=== PATIENT | male | born 1980 | race Caucasian/White ===

== ENCOUNTER 2021-02-24 14:14 | Outpatient (RCR) | payer MEDICAID, SELFPAY | END 2021-04-15 23:59 | LOC: IMMUN 14:14 | PROVIDERS: PCP Family Medicine; Visit Provider Family Medicine | DX: Z23 Encounter for immunization (principal) | CPT/HCPCS: 0001A; 91300 ==

== ENCOUNTER 2025-05-14 12:02 | Inpatient (IN) | payer MEDICAID, SELFPAY ==
[2025-05-14] VITALS (13 sets, daily range): BP systolic 128–158; BP diastolic 90–115; PULSE 61–105; RESP 13–16; TEMP 36.4–37.1; O2SAT 97–100; BMI 19.8; BMI 18.8
--- NOTE | 2025-05-14 12:20 | EKG12_ITS ---
Test Reason : PLACEMENT Blood Pressure : */* mmHG Vent. Rate : 95 BPM Atrial Rate : 95 BPM P-R Int : 150 ms QRS Dur : 78 ms QT Int : 360 ms P-R-T Axes : 51 77 27 degrees QTcB Int : 452 ms Normal sinus rhythm Minimal voltage criteria for LVH, may be normal variant ( Sokolow-Briscoe ) Nonspecific ST abnormality Abnormal ECG Confirmed by ANDRADE RODRÍGUEZ, KELLY ([id number]), purchasing expeditor JUAN RAMON SOTO ([id number]) on 05/18/2025 6:35:19 AM Referred By: Confirmed By: KELLY ZAFAR MD
--- NOTE | 2025-05-14 12:30 | EDS_ITS ---
HPI HPI - Psych History of Present Illness Chief Complaint: Overdose Informant: patient, EMS and police/docent coordinator Narrative Narrative: 44-year-old male attempted to commit suicide. According to pink slip from
--- NOTE | 2025-05-14 12:30 | EX.ED.VIS.PS ---
HPI HPI - Psych History of Present Illness Chief Complaint: Overdose Informant: patient, EMS and police/general intern Narrative Narrative: 44-year-old male attempted to commit suicide. According to pink slip from police, third-green party requested aware welfare check on him, and the patient admitted to consuming 47 pills of Tylenol PM sleeping pills as well as half of a bottle of vodka. The patient admits that this was around 1 or 2 AM, he presents here around noon. He states he had some nausea and dry heaving he did not vomit up any of the pills. It was a full bottle of 50 pills and he had taken 3 of the pills at an earlier date, 1 at a time separately. He states he believes they were 500 mg acetaminophen pills along with diphenhydramine. He took no other coingestants. He states he lost a job, has financial issues, he has been evicted from his housing, and told police that he would try to kill himself again and wants to . States he feels a little nauseated right now but has no other symptoms and declines any medication for that. [facility] Medical History (Updated 05/14/25 @ 15:22 by Musa Chris) Fibromyalgia Medical History no medical history no medical history Home Medications ?Medication ?Instructions ?Recorded ?Last Taken ?Type NK 05/14/25 Unknown History Allergy/AdvReac Type Severity Reaction Status Date / Time Penicillins Allergy Unknown unknown Verified 05/14/25 13:32 Social History Smoking Status: Current every day smoker tobacco type: cigarettes ROS ROS ED Constitutional Constitutional ED: Denies chills or fever(s) Eyes Eyes: Denies change in vision or diplopia ENT ENT ED: Denies rhinorrhea or sore throat Cardiovascular Cardiovascular: Denies chest pain or palpitations Respiratory/Chest Respiratory/Chest: Denies cough or dyspnea Gastrointestinal Gastrointestinal: Reports nausea and vomiting; Denies abdominal pain or diarrhea Genitourinary Genitourinary ED: Denies dysuria or hematuria Musculoskeletal Musculoskeletal: Denies back pain or neck pain Integumentary Denies abscess or rash Neurologic Neurologic: Denies headache(s), paresthesias or weakness Psychiatric Psychiatric: Reports depression, suicidal ideation and suicidal thoughts; Denies homicidal ideation EXAM Physical Exam Const Vital Signs: 05/14/25 12:03 05/14/25 13:03 05/14/25 14:00 Temperature 98.1 F Temperature Source Oral Pulse Rate 105 H 84 81 Respiratory Rate 15 13 15 Blood Pressure 158/104 H 149/107 H 144/100 H Blood Pressure Mean 122 121 114 Pulse Ox 100 100 100 Oxygen Delivery Method Room Air Room Air Room Air Positive well nourished and well developed General Appearance ED: well developed and NAD HEENT Reports moist mucous membranes normocephalic and atraumatic Eyes PERRL and EOMs intact bilaterally General Eye ED: Negative for scleral icterus Neck no lymphadenopathy and supple Resp normal respiratory effort and clear to auscultation bilaterally Cardio no murmurs Rate: regular rate Rhythm: regular rhythm GI non-distended GI Narrative: Mild right upper quadrant/epigastric tenderness no guarding or rebound otherwise benign abdomen. Auscultation: normoactive bowel sounds Palpation: soft Back/Spine no CVA tenderness and normal ROM Extremity normal to inspection General Extremety ED: Negative for edema General Extremity: Negative for edema Neuro oriented x3, CN's II-XII intact bilaterally, no sensory deficits noted and gait normal Sensorium / Orientation: alert Motor Exam: strength 5/5 throughout Psych mental status grossly normal, thought process normal, cooperative, activity/motor behavior normal and denies homicidal ideation Mood & Affect: depressed and flat affect Thought Content: suicidality, No homicidality, No delusion(s) and No hallucination(s) Skin General Skin Exam: Negative for jaundice Lesions: no lesions Rashes: no rashes MDM MDM MDM Narrative Medical decision making narrative: Toxicology and liver enzymes/labs are pending, patient has been cooperative, in the meantime I am ordering him a dose of Acetadote 150 mg/kg over 60 minutes given my high suspicion for a toxic or near toxic overdose and tenderness in her right upper quadrant. Patient's acetaminophen level went placed in the Rumack Addy nomogram is above the both the treatment and Rumack Addy lines, placing him fully in the probable acetaminophen toxic portion of the nomogram, and admission to the ICU for further acetylcysteine treatment and monitoring is indicated. At this time his alcohol level is negative, his salicylate level is negative, his INR and liver enzymes are normal, and he does not have an anticholinergic toxidrome from the diphenhydramine component at this time. Discussed with hospitalist for ICU admission. Lab Data Attestation: I reviewed the patient's lab results. Labs: Laboratory Results - last 24 hr 05/14/25 05/14/25 12:20 13:27 WBC 6.6 RBC 5.00 Hgb 15.0 Hct 43.9 MCV 87.8 MCH 30.0 MCHC 34.2 RDW Std Deviation 40.7 RDW Coeff of Dominique 12.7 Plt Count 216 MPV 11.1 Immature Gran % (Auto) 0.600 Neut % (Auto) 84.8 H Lymph % (Auto) 9.0 L Lyon % (Auto) 5.1 Eos % (Auto) 0.0 Baso % (Auto) 0.5 Absolute Neuts (auto) 5.6 Absolute Lymphs (auto) 0.60 L Nucleated RBC % 0 PT 14.8 INR 1.1 Sodium 138 Potassium 4.5 Chloride 104 Carbon Dioxide 21.7 Anion Gap 12 BUN 13 Creatinine 0.93 Estim Creat Clear Calc 90.54 Est GFR (MDRD) Non-Af 104 BUN/Creatinine Ratio 13.4 Glucose 116 H Calcium 9.2 Total Bilirubin 0.39 Direct Bilirubin 0.18 AST 32 ALT 36 Alkaline Phosphatase 67 Total Protein 6.8 Albumin 4.6 Globulin 2.3 Salicylates < 0.5 L Acetaminophen 66.8 H* Ethyl Alcohol < 10.1 Rhythm Strip Rhythm Strip: Sinus Rhythm Rate: 95 Ectopy: None EKG Initial EKG: Attestation: I personally reviewed and interpreted this EKG as follows: Interpretation: Sinus Rhythm and No Acute Injury Pattern Comments: Nml axis & intervals; nml EKG. QTc within normal limits. Management Discussion w/another healthcare provider: Hospitalist and Logistics Research Engineer (Dr. harrington, [facility]) Critical Care Time Critical Care Time: Yes Critical care time (excluding procedures): 30-74 minutes (43 min), Including time spent:, Discussing w/Patient &/or Family/Risk Manager, Discussing w/Consultants, Arranging Admission or Transfer and Performing Direct Patient Care at Bedside Discharge Plan Dx/Rx/DC Orders Clinical Impression: Acetaminophen toxicity, Suicide attempt by acetaminophen overdose Disposition Disposition: [facility] Discharge Date/Time: 05/14/25 14:49
[2025-05-14 12:33] LABS: Hematocrit 43.9 % (40-54); Hemoglobin 15.0 g/dL (13.0-16.5); Immature Granulocytes Count 0.040 X10^3/uL (0.0-0.0); Mean Corp Hgb Conc 34.2 g/dL (32-36); Mean Corpuscular Volume 87.8 fL (80-94); Mean Platelet Vol. 11.1 fl (6.2-12.0); NRBC Flagged by Analyzer 0 % (0-5); POSITIVE DIFFERENTIAL YES; Platelet Count 216 K/mm3 (150-450); RBC Distribution Width CV 12.7 % (11.6-14.6); RBC Distribution Width SD 40.7 fl (35.1-43.9); Red Blood Count 5.00 M/mm3 (4.6-6.2); White Blood Count 6.6 K/mm3 (4.4-11.0)
[2025-05-14 13:03] LABS: Anion Gap 12 (5-15); BUN 13 mg/dL (4-19); BUN/Creat Ratio 13.4 RATIO (10-20); Calcium,Total 9.2 mg/dL (7.6-11.0); Carbon Dioxide 21.7 mmol/L (21.0-32.0); Chloride 104 mmol/L (98-108); Estimated Creatinine Clearance 90.54 ml/min (50-250); Glucose 116 mg/dL (70-99); Potassium 4.5 mmol/L (3.3-5.1)
[2025-05-14] MEDS: WATER IV ×3 (13:30→18:37)
[2025-05-14] MEDS: ACETYLCYSTEINE IV ×3 (13:30→18:37)
[2025-05-14] MEDS: DEXTROSE 5% IV ×3 (13:30→18:37)
[2025-05-14 13:40] LABS: Acetaminophen (Tylenol) Level 66.8 ug/mL (8.0-19.0); Alcohol, Blood (Medical)-Serum < 10.1 mg/dL (<=10.0); Salicylate < 0.5 mg/dL (2.8-20.0)
[2025-05-14 13:42] LABS: Prothrombin Time (Protime)PT. 14.8 SECONDS (11.7-14.9)
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
--- NOTE | 2025-05-14 14:04 | HP.PCM.HOS_ITS ---
HPI - General General Date of Admission: 05/14/25 Date of Service: 05/14/25 Chief Complaint: Intentional Tylenol overdose HPI Narrative GUILLERMINA CATES, is a 44 M who presented to [facility] ED on 05/14/2025 after an intentional Tylenol overdose. Patient lives at home alone. [employer] requested a welfare check on him, and be admitted to consuming 47 pills of Tylenol p.m. sleeping pills as well as half a bottle of vodka in an attempt to commit suicide. Notes he took these things around 1 to 2 AM, and police arrived there around noon. He reported some nausea and dry heaving but did not vomit up any pills. States that he recently lost the job, has financial issues, and has been evicted from his housing. Told police that he would try to kill him self again and wants to . Has no other significant medical history. In the ED he was mildly hypertensive but otherwise stable on room air at rest. CBC and BMP were benign. Tylenol level very elevated at 66.8. Alcohol level normal and salicylate level normal. LFTs were normal and INR 1.1. He was given the first dose of IV N-acetylcysteine and hospitalist was contacted for admission. I saw the patient at bedside in the ED. Patient was sitting back in bed and resting comfortably. He responded to me with a few short responses but it appeared he selectively was not answering most of my questions. He denied any abdominal pain currently. Will be admitted for further management. [facility] Medical History no medical history Home Medications ?Medication ?Instructions ?Recorded ?Last Taken ?Type NK 05/14/25 Unknown History Allergy/AdvReac Type Severity Reaction Status Date / Time Penicillins Allergy Unknown unknown Verified 05/14/25 13:32 Social History Smoking Status: Current every day smoker tobacco type: cigarettes ROS Constitutional Constitutional: Denies chills or fever(s) Cardiovascular Cardiovascular: Denies chest pain Respiratory/Chest Respiratory/Chest: Denies shortness of breath at rest Gastrointestinal Gastrointestinal: Denies abdominal pain Vital Signs Vital Signs Vital Signs: 05/14/25 12:03 05/14/25 13:03 Temperature 98.1 F Temperature Source Oral Pulse Rate 105 H 84 Respiratory Rate 15 13 Blood Pressure 158/104 H 149/107 H Blood Pressure Mean 122 121 Pulse Ox 100 100 Oxygen Delivery Method Room Air Room Air Weight Weight: 62.5 kg Body Mass Index (BMI) 19.8 Physical Exam Const alert, no apparent distress and average body habitus Constitutional Narrative: Middle-age male, sitting back comfortably in bed, only selectively responsive to my questions but otherwise appeared to be in no acute distress. General Appearance: cooperative and comfortable HEENT normocephalic, head/scalp atraumatic, hearing grossly normal bilaterally, nasal mucous membranes and turbinates normal and moist oral mucous membranes Eyes PERRL, EOMs intact bilaterally and conjunctivae normal Neck full ROM Chest inspection of chest normal Resp normal respiratory effort, normal air movement, no use of accessory muscles and clear to auscultation bilaterally Cardio regular rate, regular rhythm, no murmurs and peripheral pulses 2+ throughout GI normal to inspection, nondistended, normoactive bowel sounds, soft to palpation, non-tender and non-distended Back/Spine normal ROM Extremity normal to inspection, full ROM and no pedal edema Skin no rashes or lesions noted Psych mental status grossly normal Mood & Affect: depressed Results Lab / Micro Data 05/14/25 12:20 05/14/25 12:20 Labs: Laboratory Results - last 24 hr 05/14/25 12:20: WBC 6.6, RBC 5.00, Hgb 15.0, Hct 43.9, MCV 87.8, MCH 30.0, MCHC 34.2, RDW Std Deviation 40.7, RDW Coeff of Dominique 12.7, Plt Count 216, MPV 11.1, Immature Gran % (Auto) 0.600, Neut % (Auto) 84.8 H, Lymph % (Auto) 9.0 L, Adams % (Auto) 5.1, Eos % (Auto) 0.0, Baso % (Auto) 0.5, Absolute Neuts (auto) 5.6, A bsolute Lymphs (auto) 0.60 L, Nucleated RBC % 0, Sodium 138, Potassium 4.5, Chloride 104, Carbon Dioxide 21.7, Anion Gap 12, BUN 13, Creatinine 0.93, Estim Creat Clear Calc 90.54, Est GFR (MDRD) Non-Af 104, BUN/Creatinine Ratio 13.4, G lucose 116 H, Calcium 9.2, Salicylates < 0.5 L, Acetaminophen 66.8 H*, Ethyl Alcohol < 10.1 05/14/25 13:27: PT 14.8, INR 1.1 Rhythm Strip Rhythm Strip: Sinus Rhythm Rate: 95 Ectopy: None Assessment & Plan Assessment/Plan (1) Suicide attempt by acetaminophen overdose: (2) Acetaminophen toxicity: PLAN: Plan Patient is a 44-year-old male who presented to [facility] ED on 05/14/2025 with intentional Tylenol overdose. 1. Intentional Tylenol overdose ? Admit under inpatient status to ICU. Reported taking 47 pills of Tylenol PM intentionally in an attempt to commit suicide. Several recent life stressors including losing his job, financial issues and being evicted from his house. Tylenol level very elevated at 66.8, but labs otherwise normal with INR 1.1 and normal LFTs. Mildly hypertensive in the ED but otherwise stable on room air at rest and in no acute pain. Discussed with pharmacy and will treat with 3 bag IV N-acetylcysteine method that takes 21 hours to complete. Given first bag in the ICU over 1 hour; second bag will be run over 4 hours and then third bag will run for 16 hours. Will recheck LFTs, INR and N-acetylcysteine level tomorrow morning. [place] slip in place and patient will require inpatient psychiatric hospitalization once medically stable. DVT prophylaxis: Lovenox CODE STATUS: Full code, unverified Expected disposition: TBD Total clinical time spent by myself addressing the patient's medical issues, reviewing all the data, and collaborating with patient's care team: 55 minutes. Charges/Coding Visit Charges Inpatient E&M: 10146 Init Hosp L2
[2025-05-14 14:30] LABS: AST(SGOT) 32 U/L (<=37); Alanine Aminotransfer ALT/SGPT 36 U/L (<=46); Albumin, Serum 4.6 g/dL (3.5-5.0); Alkaline Phosphatase 67 U/L (40-129); Bilirubin, Direct 0.18 mg/dL (0.00-0.30); Globulin 2.3 g/dL (2.2-4.2)
[2025-05-14 18:12] LABS: Barbiturate Urine NEGATIVE (< 200 ng/mL); Benzodiazepine Urine NEGATIVE (< 200 ng/mL); PCP Urine NEGATIVE (< 25 ng/mL); THC Urine NEGATIVE (< 50 ng/mL)
--- OUTSIDE RECORDS SUMMARY | 2025-05-14 20:47 | XMS RPT_ITS | CCD ---
Author Organization [facility] Care Team Providers Care Business Intelligence Administrator Name Role Phone SALVADOR PHILLIPS MD Primary Care Physician Howie RODRÍGUEZ, Dr. Franco Primary Care Provider [phone] Dr. Jem Krause MD Emergency Provider Dr. Pako Martinez DO Admit Provider Dr. Pako Martinez DO Attending Provider Allergies Allergy Classification Reported Allergen(s) Allergy Type Date of Onset Reaction(s) Facility (2 sources) Penicillin; Translations: [penicillin] Drug Allergy [facility] (1 source) Penicillins Allergy to substance 05-14-2025 unknown [facility] Medications Current Medications Medication Drug Class(es) Dates Sig (Normalized) Sig (Original) aspirin 81 mg delayed release oral tablet (2 sources) Platelet Aggregation Inhibitor, Nonsteroidal Anti-inflammatory Drug Start: 04-17-2019 aspirin 81 mg oral delayed release tablet Dose : 81 mg = 1 tab(s), Oral, qDay, # 30 tab(s), 0 Refill(s) Start Date: 04/17/19 Status: Ordered Start: 04-17-2019 aspirin 81 mg oral delayed release tablet Dose : 81 mg = 1 tab(s), Oral, qDay, # 30 tab(s), 0 Refill(s) Start Date: 04/17/19 Status: Ordered celecoxib 200 mg oral capsule (2 sources) Nonsteroidal Anti-inflammatory Drug Start: 09-13-2020 celecoxib 200 mg oral capsule Dose : 200 mg = 1 cap(s), Oral, qDay, PRN as needed for pain, # 10 cap(s), 0 Refill(s) Start Date: 09/13/20 Status: Ordered clindamycin 150 mg oral capsule (1 source) Lincosamide Antibacterial Start: 04-16-2022 End: 04-23-2022 clindamycin 150 mg oral capsule Dose : 450 mg = 3 cap(s), Oral, TID, X 7 day(s), # 63 cap(s), 0 Refill(s), 04/23/22 7:40:00 EDT, Pain in tooth, 68.2 Start Date: 04/16/22 Stop Date: 04/23/22 Status: Ordered Magnesium (1 source) Start: 12-01-2019 take 1 mg by mouth once daily Magnesium 250 mg tablet mg = tab(s), Oral, qDay, 0 Refill(s) Start Date: 12/01/19 Status: Ordered magnesium oxide 250 mg oral tablet (1 source) Start: 12-01-2019 take 1 mg by mouth once daily Magnesium 250 mg tablet mg = tab(s), Oral, qDay, 0 Refill(s) Start Date: 12/01/19 Status: Ordered Multivitamin preparation (2 sources) Start: 09-03-2018 take 1 tablet by mouth once daily Multivitamin Dose = 1 tab(s), Oral, Daily, 0 Refill(s) Start Date: 09/03/18 Status: Ordered Probiotic (2 sources) Start: 12-01-2019 Probiotic 0 Refill(s) Start Date: 12/01/19 Status: Ordered turmeric extract 500 mg oral capsule (2 sources) Start: 07-22-2019 turmeric 500 mg oral capsule 0 Refill(s) Start Date: 07/22/19 Status: Ordered Completed/Discontinued Medications Medication Drug Class(es) Dates Sig (Normalized) Sig (Original) clonazePAM 0.5 mg oral tablet (2 sources) Benzodiazepine Start: 12-01-2019 End: 01-30-2020 clonazePAM 0.5 mg oral tablet Dose : 1 mg = 2 tab(s), Oral, qHS, # 60 tab(s), 1 Refill(s), Pharmacy: [facility], Insomnia, 175, cm, 12/01/19 15:45:00 EDT, Height, 73, kg, 12/01/19 15:45:00 EDT, Dosing Weight Start Date: 12/01/19 Stop Date: 01/30/20 Status: Ordered diclofenac sodium 0.01 mg/mg topical gel (2 sources) Nonsteroidal Anti-inflammatory Drug Start: 01-05-2020 End: 04-04-2020 Voltaren 1% topical gel 2 = gram(s), Topical, QID, PRN as needed for pain, # 100 gram(s), 2 Refill(s), Pharmacy: [id number], Gel, 175, cm, 01/05/20 15:19:00 EDT, Height, 74, kg, 01/05/20 15:19:00 EDT, Dosing Weight Start Date: 01/05/20 Stop Date: 04/04/20 Status: Ordered Start: 01-05-2020 End: 04-04-2020 Voltaren 1% topical gel 2 = gram(s), Topical, QID, PRN as needed for pain, # 100 gram(s), 2 Refill(s), Pharmacy: [id number], Gel, 175, cm, 01/05/20 15:19:00 EDT, Height, 74, kg, 01/05/20 15:19:00 EDT, Dosing Weight Start Date: 01/05/20 Stop Date: 04/04/20 Status: Ordered Problems Problem Classification Problem Date Documented Da te Episodic/Chronic Cardiac dysrhythmias (2 sources) Palpitations 12-01-2019 Episodic Disorders of teeth and jaw (1 source) Disorder of teeth AND/OR supporting structures; Translations: [Other specified disorders of teeth and supporting structures] Onset: 04-16-2022 Episodic Other connective tissue disease (2 sources) Bursitis of knee 09-03-2018 Episodic Other nervous system disorders (2 sources) Carpal tunnel syndrome 09-03-2018 Chronic Other nervous system disorders (2 sources) Impaired cognition 12-01-2019 Episodic Other nervous system disorders (2 sources) Facial paresthesia 04-17-2019 Episodic Poisoning by other medications and drugs (1 source) Poisoning caused by acetaminophen; Translations: [Poisoning by 4-Aminophenol derivatives, accidental (unintentional), initial encounter] 05-14-2025 Episodic Residual codes; unclassified (2 sources) Feeling agitated 04-17-2019 Chronic Spondylosis; intervertebral disc disorders; other back problems (2 sources) Thoracic back pain 09-13-2020 Episodic Suicide and intentional self-inflicted injury (1 source) Intentional paracetamol overdose; Translations: [Poisoning by 4-Aminophenol derivatives, intentional self-harm, initial encounter] 05-14-2025 Episodic Transient cerebral ischemia (2 sources) Transient cerebral ischemia 04-17-2019 Chronic Results Test Name Value Interpretation Reference Range Facility Absolute lymphocyte countOrd ered By: Jem Krause on 05-14-2025 Lymphocytes Auto (Unsp spec) [#/Vol] 0.60 10*3/uL Low 0.83-4.51 [facility] Absolute neutrophil countOrd ered By: Jem Krause on 05-14-2025 Neutrophils (Bld) [#/Vol] 5.6 10*3/uL 2.0-7.7 [facility] Anion gap in Serum or Plasma Ordered By: Jem Krause on 05-14-2025 Anion gap [Moles/Vol] 12 mmol/L 5-15 [facility] Automated lymphocyte count a s percentage of total leukocytesOrdered By: Jem Krause on 05-14-2025 Lymphocytes/100 WBC Auto (Unsp spec) 9.0 % Low 19-41 [facility] BUN/creatinine ratioOrdered By: Jem Krause on 05-14-2025 Urea nitrogen/Creatinine [Mass ratio] 13.4 mg/mg 10-20 [facility] Basophil percentageOrdered B y: Jem Krause on 05-14-2025 Basophils/100 WBC (Bld) 0.5 % 0-1 [facility] Bilirubin directOrdered By: Jem Krause on 05-14-2025 Bilirubin.direct [Mass/Vol] 0.18 mg/dL 0.00-0.30 [facility] Bilirubin, totalOrdered By: Jem Krause on 05-14-2025 Bilirubin [Mass/Vol] 0.39 mg/dL 0.00-1.30 [facility] Carbon dioxide, total [Moles /volume] in Central venous bloodOrdered By: Jem Krause on 05-14-2025 CO2 [Moles/Vol] 21.7 mmol/L 21.0-32.0 [facility] Chloride assayOrdered By: Trey Krause on 05-14-2025 Chloride [Moles/Vol] 104 mmol/L 98-108 [facility] Eosinophil percentageOrdered By: Jem Krause on 05-14-2025 Eosinophils/100 WBC (Bld) 0.0 % 0-5 [facility] Erythrocyte distribution wid th ratioOrdered By: Jem Krause on 05-14-2025 Erythrocyte distribution width (RBC) [Ratio] 12.7 % 11.6-14.6 [facility] Erythrocyte distribution wid th standard deviationOrdered By: Jem Krause on 05-14-2025 Erythrocyte distribution width (RBC) [Ratio] 40.7 fl 35.1-43.9 [facility] Glomerular filtration rate ( GFR) estimation/1.73 sq m using serum, plasma, or whole bOrdered By: Jem Krause on 05-14-2025 GFR/1.73 sq M.predicted among non-blacks MDRD (S/P/Bld) [Vol rate/Area] 104 mL/min/{1.73_m2} >60 [facility] Comment on above: mL/min/1.73m2 CKD-EP I Creatinine Equation (2020) Hematocrit Auto (Bld) [Volum e fraction]Ordered By: Jem Krause on 05-14-2025 Hematocrit (Bld) [Volume fraction] 43.9 % 40-54 [facility] Hemoglobin measurementOrdere d By: Jem Krause on 05-14-2025 Hemoglobin (Bld) [Mass/Vol] 15.0 g/dL 13.0-16.5 [facility] Immature granulocytes/100 WB C Auto (Bld)Ordered By: Jem Krause on 05-14-2025 Immature granulocytes/100 WBC (Bld) 0.600 % 0.0-0.9 [facility] Comment on above: IG% - Immature Granu locytes (promyelocytes, myelocytes and metamyelocytes) > 1% indicates that a LEFT SHIFT is Present. International normalized rat io (INR) calculationOrdered By: Jem Krause on 05-14-2025 INR Coag (Bld) [Relative time] 1.1 {INR} [facility] Laboratory - Chemistry and C hemistry - challengeOrdered By: Jem Krause on 05-14-2025 AST [Catalytic activity/Vol] 32 U/L <38 [facility] MCV (mean corpuscular volume ) determinationOrdered By: Jem Krause on 05-14-2025 MCV (RBC) [Entitic vol] 87.8 fL 80-94 [facility] Mean corpuscular hemoglobin (MCH) determinationOrdered By: Jem Krause on 05-14-2025 MCH (RBC) [Entitic mass] 30.0 pg 27.0-32.0 [facility] Mean corpuscular hemoglobin concentration (MCHC) determinationOrdered By: Jem Krause on 05-14-2025 MCHC (RBC) [Mass/Vol] 34.2 g/dL 32-36 [facility] Mean platelet volume determi nationOrdered By: Jem Krause on 05-14-2025 Platelet mean volume (Bld) [Entitic vol] 11.1 fL 6.2-12.0 [facility] Monocyte percentageOrdered B y: Jem Krause on 05-14-2025 Monocytes/100 WBC (Bld) 5.1 % 0-10 [facility] Neutrophil percentageOrdered By: Jem Krause on 05-14-2025 Neutrophils/100 WBC (Bld) 84.8 % High 47-70 [facility] Nucleated red blood cell per centageOrdered By: Jem Krause on 05-14-2025 Nucleated RBC/100 WBC (Bld) [Ratio] 0 % 0-5 [facility] Platelet countOrdered By: Trey Krause on 05-14-2025 Platelets (Bld) [#/Vol] 216 10*3/uL 150-450 [facility] Potassium measurement (mass/ volume)Ordered By: Jem Krause on 05-14-2025 Potassium (Unsp spec) [Mass/Vol] 4.5 mmol/L 3.3-5.1 [facility] Prothrombin timeOrdered By: Jem Krause on 05-14-2025 PT Coag (PPP) [Time] 14.8 s 11.7-14.9 [facility] RBC Auto (Bld) [#/Vol]Ordere d By: Jem Krause on 05-14-2025 RBC (Bld) [#/Vol] 5.00 10*6/uL 4.6-6.2 [facility] Serum creatinine measurement (mass/volume)Ordered By: Jem Krause on 05-14-2025 Creatinine [Mass/Vol] 0.93 mg/dL 0.70-1.20 [facility] Serum globulin measurementOr dered By: Jem Krause on 05-14-2025 Globulin (S) [Mass/Vol] 2.3 g/dL 2.2-4.2 [facility] Serum glucose measurement (m ass/volume)Ordered By: Jem Krause on 05-14-2025 Glucose [Mass/Vol] 116 mg/dL High 70-99 [facility] Serum or plasma acetaminophe n measurement (mass/volume)Ordered By: Jem Krause on 05-14-2025 Acetaminophen [Mass/Vol] 66.8 ug/mL High 8.0-19.0 [facility] Comment on above: Critical Result(s) C alled at 1340: by: ALEXUS HENDRICKSON TO [facility]. Results read back by same.Acetaminophen concentrations > 200 ug/mL four hours after ingestion, > 100 ug/mL eight hours after ingestion, and > 50 ug/mL 12 hours after ingestion are potentially toxic.Acetaminophen concentrations greater than 150.0 ug/mL atfour hours after ingestion and 50.0 ug/mL at 12 hours afteringestion are potentially toxic. Serum or plasma alanine chambers otransferase (ALT) measurementOrdered By: Jem Krause on 05-14-2025 ALT [Catalytic activity/Vol] 36 U/L <47 [facility] Serum or plasma albumin gretta urement (mass/volume)Ordered By: Jem Krause on 05-14-2025 Albumin [Mass/Vol] 4.6 g/dL 3.5-5.0 [facility] Serum or plasma alkaline adama sphatase measurementOrdered By: Jem Krause on 05-14-2025 ALP [Catalytic activity/Vol] 67 U/L 40-129 [facility] Serum or plasma calcium gretta urement (mass/volume)Ordered By: Jem Krause on 05-14-2025 Calcium [Mass/Vol] 9.2 mg/dL 7.6-11.0 [facility] Serum or plasma ethanol gretta urement (mass/volume)Ordered By: Jem Krause on 05-14-2025 Ethanol [Mass/Vol] mg/dL <10.1 [facility] Comment on above: This test is for med ical purposes only. The legal definition of intoxication varies according to local law. Serum or plasma salicylates measurement (mass/volume)Ordered By: Jem Krause on 05-14-2025 Salicylates [Mass/Vol] mg/dL Low 2.8-20.0 [facility] Comment on above: Salicylate concentra tions > 30 mg/dL are potentially toxic.Salicylate concentrations exceeding 60 mg/dL can be lethal. Serum or plasma urea nitroge n measurement (mass/volume)Ordered By: Jem Krause on 05-14-2025 Urea nitrogen [Mass/Vol] 13 mg/dL 4-19 [facility] Sodium levelOrdered By: Darin Krause on 05-14-2025 Sodium [Moles/Vol] 138 mmol/L 133-145 [facility] Total proteinOrdered By: Kyle Krause on 05-14-2025 Protein [Mass/Vol] 6.8 g/dL 5.9-8.4 [facility] White blood cell (WBC) count Ordered By: Jem Krause on 05-14-2025 WBC (Bld) [#/Vol] 6.6 10*3/uL 4.4-11.0 [facility] CRPon 08-06-2020 CRP [Mass/Vol] mg/L Normal 0.0-0.9 [facility] ([place]) Comment on above: Performed By: #### E SR, CRP #### [address] [address] ESRon 08-06-2020 Erythrocyte Sed Rate 2 mm/hr Normal 0-15 [facility] ([place]) Comment on above: Performed By: #### E SR, CRP #### [address] [address] Vital Signs Date Time Vital Sign Value Performing Clinician Facility 05-14-2025 14:38-0400 Body temperature 97.6 [degF] Dr. Salvador Phillips MD Work Phone: [facility] 05-14-2025 14:38-0400 Diastolic blood pressure 115 mm[Hg] Dr. Salvador Phillips MD Work Phone: [facility] 05-14-2025 14:38-0400 Heart rate 78 /min Dr. Salvador Phillips MD Work Phone: [facility] 05-14-2025 14:38-0400 Respiratory rate 15 /min Dr. Salvador Phillips MD Work Phone: [facility] 05-14-2025 14:38-0400 SaO2% (BldA) [Mass fraction] 100 % Dr. Salvador Phillips MD Work Phone: [facility] 05-14-2025 14:38-0400 Systolic blood pressure 143 mm[Hg] Dr. Salvador Phillips MD Work Phone: [facility] 05-14-2025 12:03-0400 Body height 177.[address] Salvador Phillips MD Work Phone: [facility] 05-14-2025 12:03-0400 Body mass index (BMI) [Ratio] 19.8 kg/m2 Dr. Salvador Phillips MD Work Phone: [facility] 05-14-2025 12:03-0400 Body weight 62.[address] Salvador Phillips MD Work Phone: [facility] 04-16-2022 07:28-0400 Body temperature 98.78 [degF] JEREMI MOORE DO [facility] 04-16-2022 07:28-0400 Diastolic blood pressure 80 mm[Hg] JEREMI GARCIAJyoti DEMARCO [facility] 04-16-2022 07:28-0400 Heart rate 74 /min JEREMI MOORE DO [facility] 04-16-2022 07:28-0400 Respiratory rate 18 /min JEREMI MOORE DO [facility] 04-16-2022 07:28-0400 Systolic blood pressure 124 mm[Hg] JEREMI RACHELROCIO DEMARCO [facility] 07-12-2021 08:52-0400 Body temperature 98.42 [degF] DR EMORY AYALA DO [facility] 07-12-2021 08:52-0400 Diastolic blood pressure 85 mm[Hg] DR EMORY AYALA DO [facility] 07-12-2021 08:52-0400 Heart rate 53 /min DR EMORY AYALA DO [facility] 07-12-2021 08:52-0400 Mean blood pressure 101 mm[Hg] DR EMORY AYALA DO [facility] 07-12-2021 08:52-0400 Respiratory rate 18 /min DR EMORY AYALA DO [facility] 07-12-2021 08:52-0400 Systolic blood pressure 134 mm[Hg] DR EMORY AYALA DO [facility] Encounters Encounter Date Encounter Type Care Provider Facility Start: 05-14-2025 Evaluation and management of inpatient Dr. Pako Martinez DO -Intensive Care Unit Work Phone: Start: 04-16-2022 End: 04-16-2022 Emergency department patient visit JEREMI MOORE DO [facility] Start: 07-12-2021 End: 07-12-2021 Emergency department patient visit DR EMORY AYALA DO [facility] Procedures Date Procedure Procedure Detail Performing Clinician Start: 05-14-[address] Salvador Phillips MD Work Phone: Start: 09-13-2018 Decompression of med michelle nerve DR EMORY AYALA DO Comment on above: Right Start: 09-24-1995 Upper arm structure (body structure) DR EMORY AYALA DO Comment on above: RESET FRACTURED LEFT ARM Plan of Treatment Date Care Activity Detail Author Start: 05-14-2025 Admission procedure [facility] Start: 05-14-2025 Verification routine [facility] Start: 05-14-2025 Hospital admission, emergency, from emergency room, medical nature [facility] Start: 05-14-2025 Electrocardiographic procedure [facility] Start: 05-14-2025 Suicide precautions [facility] Amphetamines [Presen ce] in Urine by Screen method >1000 ng/mL [facility] Benzodiazepine measurement, urine [facility] Cocaine measurement, urine [facility] fentaNYL [Presence] in Urine by Screen method [facility] Methadone measurement, urine [facility] Phencyclidine [Presence] in Urine [facility] Urine cannabinoid measurement [facility] Urine opiate measurement [facility] Payers Date Payer Category Payer Policy ID Private Health Insurance [id number] Unknown [id number] Social History Date Type Detail Facility Start: 06-03-2019 Never smoked t obacco (finding) [facility] Start: 1980 Sex Assigned At Male A [facility] Start: 05-14-2025 Tobacco smoking stat us NHIS Smokes tobacco daily (finding) [facility] Functional Status Date Assessment Result Facility 04-16-2022 Functional Status ID band on, Allergy Band on, Call device within reach, Bed in low position, Wheels locked, Upper/Half-Length side-rails up, Phone within reach, personal items within reach, Assistive devices within reach, Toileting device within reach, Bedside Cart Locked, Visitor at bedside, Safety level maintained [facility] Mental Status Date Assessment Result Facility 04-16-2022 Mental Status Oriented x 4 Franky tolbert Franyk [facility] Discharge instructions 04-16-2022 Note Date & Type Note Facility 04-16-2022 Hospital Discharg e instructions Patient Education 04/16/2022 07:40:57 Dental Pain Dental Pain A crack or cavity in a tooth can cause tooth pain. This is because the crack or cavity exposes the sensitive inner area of the tooth. An infection in the gum or the root of the tooth can cause pain and swelling. The pain is often made worse when you drink hot or cold beverages. It can also be worse when you bite on hard foods. Pain may spread from the tooth to your ear or the area of the jaw on the same side. Home care Follow these tips when caring for yourself at home: Don't have hot and cold foods and drinks. Your tooth may be sensitive to changes in temperature. Use toothpaste made for sensitive teeth. [place] gently up and down instead of sideways. Brushing sideways can wear away root surfaces if they are exposed. If your tooth is chipped or cracked, or if there is a large open cavity, put oil of cloves directly on the tooth to relieve pain. You can buy oil of cloves at drugstores. Some pharmacies carry an nwem-qkw-iwcovmt toothache kit. This contains a paste that you can put on the exposed tooth to make it less sensitive. Put a cold pack on your jaw over the sore area to help reduce pain. You may use peja-gxk-[id number] medicine to ease pain, unless your doctor prescribed another medicine. If you have chronic liver or kidney disease, talk with your healthcare provider before using acetaminophen or ibuprofen. Also talk with your provider if you ve had a stomach ulcer or GI bleeding. If you have signs of an infection, you will be given an antibiotic. Take it as directed. Follow-up care Follow up with your dentist, or as advised. Your pain may go away with the treatment given today. But only a dentist can fully look at and treat the cause of your pain. This will keep the pain from coming back. Call 911 Call 911 if any of these occur: Unusual drowsiness Headache or stiff neck Weakness or fainting Difficulty swallowing or breathing When to seek medical advice Call your health care provider right away if any of these occur: Your face becomes swollen or red Pain gets worse or spreads to your neck Fever of 100.4 F (38.0 C) or higher, or as directed by your healthcare provider Pus drains from the tooth [id number] [employer]. [address] [place] [address], [place] [address]. All rights reserved. This information is not intended as a substitute for professional medical care. Always follow your healthcare professional's instructions. Follow Up Care 04/16/2022 07:24:49 With:SALVADOR PHILLIPS MD Address: [address] [place], [place] [address]- When:2-4 days [facility] Emergency department Discharge summary 04-16-2022 Note Date & Type Note Facility 04-16-2022 Emergency department Discharge summary Discharge Instructions Thank you for allowing [facility] to assist you with your healthcare needs. The following is important discharge information regarding your hospital visit. Diagnosis from Today's Visit Pain in tooth Pain of jaw What to Do Next Instructions from Your Care Team No qualifying data available. Post Acute Orders No qualifying data available. You Need to Schedule the Following Appointments Follow Up with SALVADOR PHILLIPS MD When Within 2-4 days Where: [address] [place], [place] [id number]- Allergies penicillin Medications Please ask your primary doctor or pharmacist before taking any other medication not listed, including over the counter drugs, herbal medications, vitamins and or supplements as they may interact with your home medications. What How Much When Why Instructions Last Dose New clindamycin (clindamycin 150 mg oral capsule) 3 cap by mouth Three (3) times a day Pain in tooth Duration: 7 Days Printed Prescription Unchanged aspirin (aspirin 81 mg oral delayed release tablet) 1 tab(s) by mouth Once a day Unchanged celecoxib (celecoxib 200 mg oral capsule) 1 cap by mouth Once a day as needed for as needed for pain Unchanged clonazePAM (clonazePAM 0.5 mg oral tablet) 2 tab(s) by mouth Daily at bedtime Insomnia Duration: 30 Days Unchanged diclofenac topical (Voltaren 1% topical gel) 2 gram(s) Topical Four (4) times a day as needed for as needed for pain Arthralgia of both hands Duration: 30 Days Unchanged herbal/ nutritional product (Probiotic) Unchanged herbal/ nutritional product (turmeric 500 mg oral capsule) Unchanged magnesium oxide (Magnesium 250 mg tablet) by mouth Once a day Unchanged multivitamin (Multivitamin) 1 tab(s) by mouth Every day Please take this list to your next doctor s visit. Bring all medications you take, including over the counter medications, herbals and other supplements with you to your doctor s visit. Patients and families are reminded to discard old lists and to update any records with all medication providers or retail pharmacies. Medication Leaflets clindamycin (oral/injection) (kelly brennan LARRY sin) Cleocin HCl, Cleocin Pediatric, Cleocin Phosphate What is the most important information I should know about clindamycin? Clindamycin can cause diarrhea, which may be severe or lead to serious, life-threatening intestinal problems. If you have diarrhea that is watery or bloody, stop using clindamycin and call your doctor. What is clindamycin? Clindamycin is an antibiotic that is used to treat serious infections caused by bacteria. Clindamycin may also be used for purposes not listed in this medication guide. What should I discuss with my healthcare provider before using clindamycin? You should not use this medicine if you are allergic to clindamycin or lincomycin. Tell your doctor if you have ever had: colitis, Crohn's disease, or other intestinal disorder; eczema, or allergic skin reaction; asthma or a severe allergic reaction to aspirin; liver disease; or an allergy to yellow food dye. It is not known whether this medicine will harm an unborn baby. Tell your doctor if you are or plan to become . Clindamycin can pass into breast milk and may cause side effects in the nursing baby. If you are while taking this medicine, call your doctor if your baby has diaper rash, redness or white patches in the mouth or throat, stomach discomfort, or diarrhea that is watery or bloody. Clindamycin injection may contain an ingredient that can cause serious side effects or in very young or premature babies. Do not give this medicine to a child without medical advice. How should I use clindamycin? Follow all directions on your prescription label and read all medication guides or instruction sheets. Use the medicine exactly as directed. Clindamycin oral is taken by mouth. Clindamycin injection is injected into a muscle, or as an infusion into a vein. A healthcare provider will give your first dose and may teach you how to properly use the medication by yourself. Take the capsule with a full glass of water to keep it from irritating your throat. Measure liquid medicine carefully. Use the dosing syringe provided, or use a medicine dose-measuring device (not a kitchen spoon). You may need frequent medical tests during treatment. If you need surgery, tell your surgeon you currently use clindamycin. Use this medicine for the full prescribed length of time, even if your symptoms quickly improve. Skipping doses can increase your risk of infection that is resistant to medication. Clindamycin will not treat a viral infection such as the flu or a common cold. Store at room temperature away from moisture and heat. Protect the injectable medicine from high heat. Do not store the oral liquid in the refrigerator. Throw away any unused oral liquid after 2 weeks. Use a needle and syringe only once and then place them in a puncture-proof 'sharps' container. Follow state or local laws about how to dispose of this container. Keep it out of the reach of children and pets. What happens if I miss a dose? Use the medicine as soon as you can, but skip the missed dose if it is almost time for your next dose. Do not use two doses at one time. What happens if I overdose? Seek emergency medical attention or call the Poison Help line at . What should I avoid while using clindamycin? Antibiotic medicines can cause diarrhea, which may be a sign of a new infection. If you have diarrhea that is watery or bloody, call your doctor. Do not use anti-diarrhea medicine unless your doctor tells you to. What are the possible side effects of clindamycin? Get emergency medical help if you have signs of an allergic reaction (hives, difficult breathing, swelling in your face or throat) or a severe skin reaction (fever, sore throat, burning in your eyes, skin pain, red or purple skin rash that spreads and causes blistering and peeling). Seek medical treatment if you have a serious drug reaction that can affect many parts of your body. Symptoms may include: skin rash, fever, swollen glands, flu-like symptoms, muscle aches, severe weakness, unusual bruising, or yellowing of your skin or eyes. Call your doctor at once if you have: any change in bowel habits; severe stomach pain, diarrhea that is watery or bloody; little or no urination; or a metallic taste in your mouth (after clindamycin injection). Common side effects may include: nausea, vomiting, stomach pain; mild skin rash; or vaginal itching or discharge; This is not a complete list of side effects and others may occur. Call your doctor for medical advice about side effects. You may report side effects to FDA at 8-611-TWD-9961. What other drugs will affect clindamycin? Sometimes it is not safe to use certain medications at the same time. Some drugs can affect your blood levels of other drugs you take, which may increase side effects or make the medications less effective. Other drugs may affect clindamycin, including prescription and noqd-zzw-petnioa medicines, vitamins, and herbal products. Tell your doctor about all your current medicines and any medicine you start or stop using. Where can I get more information? Your pharmacist can provide more information about clindamycin. Remember, keep this and all other medicines out of the reach of children, never share your medicines with others, and use this medication only for the indication prescribed. Every effort has been made to ensure that the information provided by [employer]. ('[employer]') is accurate, up-to-date, and complete, but no guarantee is made to that effect. Drug information contained herein may be time sensitive. [employer] information has been compiled for use by healthcare practitioners and consumers in the [place] and therefore [employer] does not warrant that uses outside of the [place] are appropriate, unless specifically indicated otherwise. [employer] drug information does not endorse drugs, diagnose patients or recommend therapy. [employer] drug information is an informational resource designed to assist licensed healthcare practitioners in caring for their patients and/or to serve consumers viewing this service as a supplement to, and not a substitute for, the expertise, skill, knowledge and judgment of healthcare practitioners. The absence of a warning for a given drug or drug combination in no way should be construed to indicate that the drug or drug combination is safe, effective or appropriate for any given patient. [employer] does not assume any responsibility for any aspect of healthcare administered with the aid of information [employer] provides. The information contained herein is not intended to cover all possible uses, directions, precautions, warnings, drug interactions, allergic reactions, or adverse effects. If you have questions about the drugs you are taking, check with your doctor, nurse or pharmacist. Copyright 5343-3880 [employer]. Version: 12.. Revision Date: 03/18/2019. Education Materials Dental Pain A crack or cavity in a tooth can cause tooth pain. This is because the crack or cavity exposes the sensitive inner area of the tooth. An infection in the gum or the root of the tooth can cause pain and swelling. The pain is often made worse when you drink hot or cold beverages. It can also be worse when you bite on hard foods. Pain may spread from the tooth to your ear or the area of the jaw on the same side. Home care Follow these tips when caring for yourself at home: Don't have hot and cold foods and drinks. Your tooth may be sensitive to changes in temperature. Use toothpaste made for sensitive teeth. [place] gently up and down instead of sideways. Brushing sideways can wear away root surfaces if they are exposed. If your tooth is chipped or cracked, or if there is a large open cavity, put oil of cloves directly on the tooth to relieve pain. You can buy oil of cloves at drugstores. Some pharmacies carry an fcro-bhf-uqmiqmc toothache kit. This contains a paste that you can put on the exposed tooth to make it less sensitive. Put a cold pack on your jaw over the sore area to help reduce pain. You may use khbk-mjx-oydogyy medicine to ease pain, unless your doctor prescribed another medicine. If you have chronic liver or kidney disease, talk with your healthcare provider before using acetaminophen or ibuprofen. Also talk with your provider if you ve had a stomach ulcer or GI bleeding. If you have signs of an infection, you will be given an antibiotic. Take it as directed. Follow-up care Follow up with your dentist, or as advised. Your pain may go away with the treatment given today. But only a dentist can fully look at and treat the cause of your pain. This will keep the pain from coming back. Call 911 Call 911 if any of these occur: Unusual drowsiness Headache or stiff neck Weakness or fainting Difficulty swallowing or breathing When to seek medical advice Call your health care provider right away if any of these occur: Your face becomes swollen or red Pain gets worse or spreads to your neck Fever of 100.4 F (38.0 C) or higher, or as directed by your healthcare provider Pus drains from the tooth [id number] [employer] [address] [place] [address], [place] [address]. All rights reserved. This information is not intended as a substitute for professional medical care. Always follow your healthcare professional's instructions. Additional Information VACCINATE! IT SAVES LIVES! Members of the community who have not yet received the COVID-19 vaccine and would like to receive it can visit one of [facility] vaccine clinics. There are many vaccine clinic locations within the [facility]. For locations and available times, please visit [email or web address] rg. It is important to note that some COVID mobile vaccine clinics are held outdoors and may be canceled in rainy or stormy conditions. To learn more about pediatric vaccinations (ages 5-11), we invite you to visit the [facility] webpage. https://www.nvites.org/pa ges/3853-Bdmnc-Gbvcekpkprn-Freque japb-Lkomn-Ikvhjarwx.html To learn more about the COVID-19 vaccine, we invite you to visit the [facility] website for a list of frequently asked questions. [email or web address] [email or web address] [facility] Patient Portal Access Instructions: Stay connected with your healthcare team and access your personal medical information anytime with the [facility] Patient Portal. If you would like a full copy of your medical records please contact the [facility] Medical Records Department Sunday through Sunday between 8a.m. and 4:30p.m. Please follow the directions below to access the portal: 1.Access the email account you provided upon registration to the [facility].2.Look for an invitation email from [facility].3.Open the email and access the invitation link: Accept Invitation to [facility]4.Fill in the required jiang to create your account. Sign into [email or web address] with your username and password that you created in the above steps to stay up to date. You can then view a summary of results, a summary of your visits, and the ability to download your summaries to your computer or send the information securely to a physician. Remember that your healthcare information is confidential, so carefully consider who you will allow to register on the [facility] Patient Portal for access to your information. You can also access the [facility] Patient Portal on the [employer]. Simply click on Health Records under Health Data and then click on the [employer] logo. HOW TO SAFELY DISPOSE OF PRESCRIPTION MEDICATIONS Please use one of the following methods to safely dispose of your unused medications. 1.Use a drug disposal kit: the drug disposal pouch allows you to safely discard your old and unused drugs. Ask your nurse to give you one when you are discharged.2.Visit a local take-back location: Many local pharmacies and police departments have programs that collect old and unwanted prescription drugs. Call your local pharmacy or go to http://[employer].Incoming Media/0J7Nb0e to find one close to you.3.Make use of household items: Use cat litter or old coffee grounds to dispose medications if other options are not available. Mix your drugs with these household products, seal them in an airtight container and throw it into the garbage. Call [facility]: [phone] to be sure your drugs can be disposed of in this way. Some medicines may require a different approach.4.Never flush your medications down the toilet. IF YOU HAVE BEEN PRESCRIBED AN OPIOIDS FOR PAIN If you have been prescribed an opioid (such as hydrocodone, oxycodone or morphine), it is critical to understand the possible side effects and risks of opioid pain medications. Even when taken as directed, opioids can have several side effects including: Tolerance, meaning you might need to take more of a medication for the same pain relief. Nausea, vomiting and/or constipation. Sleepiness, dizziness, dry mouth, confusion, depression or itching. Physical dependence, meaning you have withdrawal symptoms when a medication is stopped ? this can develop within a few days. KNOW YOUR RESPONSIBILITIES It is important to know exactly how much and how often to take the opioid pain medications you are prescribed. Never take opioids in higher amounts or more often than prescribed. Do not combine opioids with alcohol or other drugs that cause drowsiness, such as benzodiazepines, also known as benzos, including diazepam and alprazolam, muscle relaxants or sleep aids. Never sell or share prescription opioids. This is illegal. Store opioids in a secure place and out of reach of others (including children, family, friends and visitors). The last page(s) of this document has been signed and retained as a CHART COPY Signatures Patient Education Materials Dental Pain Medication Leaflets clindamycin (oral/injection) My discharge plan and instructions have been reviewed and explained to me and I,GUILLERMINA CATES understand my current condition and have read and understand these discharge instructions. I have received a written copy of the plan/instructions. If I have questions, I am aware that I should contact my doctor. Patient/Oiler Helper Signature: Date/Time: Relationship to Patient: ____ Witness Name/Signature: Date/Time: [facility] Discharge instructions 07-12-2021 Note Date & Type Note Facility 07-12-2021 Hospital Discharg e instructions Patient Education 07/12/2021 09:20:48 LACERATION, All Laceration (All Closures) A laceration is a cut through the skin. This will usually require stitches (sutures) or noemí if it is deep. Minor cuts may be treated with a surgical tape closure or skin glue. Home care The following guidelines will help you care for your laceration at home: Extremity, face, or trunk wounds Keep the wound clean and dry. If a bandage was applied and it becomes wet or dirty, replace it. Otherwise, leave it in place for the first 24 hours. If stitches or noemí were used, clean the wound daily. After removing the bandage, wash the area with soap and water. Use a wet cotton swab to loosen and remove any blood or crust that forms. The doctor may prescribe an antibiotic cream or ointment to prevent infection. Do not stop taking this medication until you have finished the prescribed course or the doctor tells you to stop. The doctor may also prescribe medications for pain. Follow the doctor s instructions for taking these medications. You may remove the bandage to shower as usual after the first 24 hours, but do not soak the area in water (no swimming) until the stitches or noemí are removed. If surgical tape was used, keep the area clean and dry. If it becomes wet, blot it dry with a towel. If skin glue was used, do not scratch, rub, or pick at the adhesive film. Do not place tape directly over the film. Do not apply liquid, ointment, or creams to the wound while the film is in place. Do not clean the wound with peroxide and do not apply ointments. Avoid activities that cause heavy sweating until the film has fallen off. Protect the wound from prolonged exposure to sunlight or tanning lamps. You may shower as usual but do not soak the wound in water (no baths or swimming). The film will fall off by itself in 5 10 days. Scalp wounds During the first two days, you may carefully rinse your hair in the shower to remove blood, glass or dirt particles. After two days, you may shower and shampoo your hair normally. Do not soak your scalp in the tub or go swimming until the stitches or noemí have been removed. Talk with your doctor before applying any antibiotic ointment to the wound. Mouth wounds Eat soft foods to reduce pain. If the cut is inside of your mouth, clean by rinsing after each meal and at bedtime with a mixture of equal parts water and hydrogen peroxide (do not swallow!). Or, you can use a cotton swab to directly apply hydrogen peroxide onto the cut. Mouth wounds can be painful when eating. You may use an xosq-uad-cbpybni local numbing solution for pain relief. If this is not available, you may use any numbing solution for teething babies. You may apply this directly to the sores with a cotton-tip swab or with your finger. Follow-up care Follow up with your health care provider. Most skin wounds heal within ten days. Mouth and facial wounds heal within five days. However, even with proper treatment, a wound infection may sometimes occur. Therefore, you should check the wound daily for signs of infection listed below. Stitches should be removed from the face within five days; stitches and noemí should be removed from other parts of the body within 7 14 days. If dissolving stitches were used in the mouth, these will fall out or dissolve without the need for removal. If tape closures were used, remove them yourself if they have not fallen off after 7 days. If skin glue was used, the film will fall off by itself in 5 10 days. When to seek medical advice Call your health care provider right away if any of these occur: Bleeding not controlled by direct pressure Signs of infection, including increasing pain in the wound, increasing wound redness or swelling, or pus coming from the wound Fever of 100.4 F (38 C) or higher, or as directed by your health care provider Stitches or noemí come apart or fall out or surgical tape falls off before 7 days Wound edges re-open [id number] [employer]. [address] [place] [address]. All rights reserved. This information is not intended as a substitute for professional medical care. Always follow your healthcare professional's instructions. Follow Up Care 07/12/2021 08:49:04 With:SALVADOR PHILLIPS MD Address: When:2-4 days [facility] Evaluation + Plan note Note Date & Type Note Facility Evaluation + Plan note No data available for this section [facility] Evaluation note Note Date & Type Note Facility Evaluation note No assessment information availa ble [facility] Work Phone: Reason for referral (narrative) Note Date & Type Note Facility Reason for referral (narrative) No reason for referral information available [facility] Work Phone: Summary Purpose Family History No Family History Records Found Advance Directives Advance Directive Response Recorded Date/ Time Do you have a Healthcare Power of Diagnostic Radiologic Technologist? No May 14, 2025 12:03pm Chief Complaint and Reason for Visit Chief Complaint Admit Date INTENTIONAL TYLENOL OVERDOSE April 2:09pm Additional Source Comments (unrecognized sect ion and content) No Status Records Found INFORMATION SOURCE (unrecogn ized section and content) DATE CREATED AUTHOR 07/13/2021 [facility] ([place]) Care Team (unrecognized sect ion and content) Care Team Personnel Name: SALVADOR PHILLIPS MD Position: P4 Physician - Primary Care Med Service: Active Provider Member Role: Primary Care Physician Address: Address: [address] [facility] [place] [address]- Care Team Related Persons Name: MOOSE WATKINS Name: December Care Teams (unrecognized sec tion and content) Team Status: Active Member Role/Relationship Status Dates Dr. Salvador Phillips MD Primary Care Provider Active Team Status: Active Member Role/Relationship Status Dates Dr. Salvador Phillips MD Primary Care Provider Active Start: May 14, 2025 Dr. Jem Krause MD Emergency Provider Active Start: May 14, 2025 Dr. Pako Martinez , Admit Provider Active Start: May 14, 2025 Dr. Pako Martinez , Attending Provider Active Start: May 14, 2025 Goals (unrecognized section and content) Goals may be documented in a n alternate section FOR RECORDS PERTAINING TO PATIENTS WHO ARE OR HAVE BEEN ENROLLED IN A CHEMICAL DEPENDENCY/SUBSTANCEABUSE PROGRAM, SOME INFORMATION MAY BE OMITTED. This clinical summary was aggregated from multiple sources. Caution should be exercised in using it in the provision of clinical care. This summary normalizes information from multiple sources, and as a consequence, information in this document may materially change the coding, format and clinical context of patient data. In addition, data may be omitted in some cases. CLINICAL DECISIONS SHOULD BE BASED ON THE PRIMARY CLINICAL RECORDS. [facility] [employer] provides no warranty or guarantee of the accuracy or completeness of information in this document.
[2025-05-15] VITALS (16 sets, daily range): BP systolic 107–147; BP diastolic 76–97; PULSE 56–88; RESP 11–17; TEMP 36.4–37.3; O2SAT 97–99; BMI 18.9
[2025-05-15 03:36] LABS: Hematocrit 41.6 % (40-54); Hemoglobin 14.2 g/dL (13.0-16.5); Mean Corp Hgb Conc 34.1 g/dL (32-36); Mean Corpuscular Volume 90.0 fL (80-94); Mean Platelet Vol. 10.6 fl (6.2-12.0); Platelet Count 185 K/mm3 (150-450); RBC Distribution Width CV 13.0 % (11.6-14.6); RBC Distribution Width SD 42.9 fl (35.1-43.9); Red Blood Count 4.62 M/mm3 (4.6-6.2); White Blood Count 9.2 K/mm3 (4.4-11.0)
[2025-05-15 03:45] LABS: Prothrombin Time (Protime)PT. 15.8 SECONDS (11.7-14.9)
[2025-05-15 04:03] LABS: AST(SGOT) 32 U/L (<=37); Alanine Aminotransfer ALT/SGPT 44 U/L (<=46); Albumin, Serum 3.9 g/dL (3.5-5.0); Alkaline Phosphatase 52 U/L (40-129); Anion Gap 12 (5-15); BUN 8 mg/dL (4-19); BUN/Creat Ratio 8.7 RATIO (10-20); Calcium,Total 8.7 mg/dL (7.6-11.0); Carbon Dioxide 22.9 mmol/L (21.0-32.0); Chloride 105 mmol/L (98-108); Estimated Creatinine Clearance 90.22 ml/min (50-250); Globulin 1.8 g/dL (2.2-4.2); Glucose 105 mg/dL (70-99); Potassium 3.6 mmol/L (3.3-5.1)
[2025-05-15 04:04] LABS: Acetaminophen (Tylenol) Level < 5.0 ug/mL (8.0-19.0)
--- NOTE | 2025-05-15 07:21 | PCM.PN.HOSP ---
Reason for Visit Chief Complaint: Intentional Tylenol overdose Subjective Subjective Patient is a 44-year-old gentleman with no significant past medical history presented to the emergency department in an apparent acetaminophen overdose in a suicide attempt Objective Data Objective Data Vital Signs: Vital Signs Temp Pulse Resp BP Pulse Ox O2 Del Method 97.6 F L 67 12 128/93 H 98 Room Air 05/15/25 06:00 05/15/25 07:00 05/15/25 07:00 05/15/25 07:00 05/15/25 07:00 05/15/25 07:00 Oxygen Delivery Method Room Air Weight: 60.1 kg Body Mass Index (BMI) 18.9 Intake & Output: Intake and Output for Last 24 Hours 05/13/25 05/14/25 05/15/25 23:59 23:59 23:59 Intake Total 1122.475 / 1122.475 Output Total 650 / 650 370 / 370 Balance 472.475 / 472.475 -370 / -370 Lab / Micro Data 05/15/25 03:26 05/15/25 03:26 Labs: Laboratory Results - last 24 hr 05/14/25 12:20: WBC 6.6, RBC 5.00, Hgb 15.0, Hct 43.9, MCV 87.8, MCH 30.0, MCHC 34.2, RDW Std Deviation 40.7, RDW Coeff of Dominique 12.7, Plt Count 216, MPV 11.1, Immature Gran % (Auto) 0.600, Neut % (Auto) 84.8 H, Lymph % (Auto) 9.0 L, Kenedy % (Auto) 5.1, Eos % (Auto) 0.0, Baso % (Auto) 0.5, Absolute Neuts (auto) 5.6, Absolute Lymphs (auto) 0.60 L, Nucleated RBC % 0, Sodium 138, Potassium 4.5, Chloride 104, Carbon Dioxide 21.7, Anion Gap 12, BUN 13, Creatinine 0.93, Estim Creat Clear Calc 90.54, Est GFR (MDRD) Non-Af 104, BUN/Creatinine Ratio 13.4, Glucose 116 H, Calcium 9.2, Total Bilirubin 0.39, Direct Bilirubin 0.18, AST 32, ALT 36, Alkaline Phosphatase 67, Total Protein 6.8, Albumin 4.6, Globulin 2.3, Salicylates < 0.5 L, Acetaminophen 66.8 H*, Ethyl Alcohol < 10.1 05/14/25 13:27: PT 14.8, INR 1.1 05/14/25 17:15: Urine Opiates Screen NEGATIVE, U Buprenorphine Qual NEGATIVE, Ur Oxycodone Screen NEGATIVE, Urine Methadone Screen NEGATIVE, Urine Fentanyl Screen NEGATIVE, Ur Barbiturates Screen NEGATIVE, Ur Phencyclidine Scrn NEGATIVE, Ur Amphetamines Screen NEGATIVE, U Benzodiazepines Scrn NEGATIVE, Urine Cocaine Screen NEGATIVE, U Cannabinoids Screen NEGATIVE 05/15/25 03:26: WBC 9.2, RBC 4.62, Hgb 14.2, Hct 41.6, MCV 90.0, MCH 30.7, MCHC 34.1, RDW Std Deviation 42.9, RDW Coeff of Dominique 13.0, Plt Count 185, MPV 10.6, PT 15.8 H, INR 1.2, Sodium 140, Potassium 3.6, Chloride 105, Carbon Dioxide 22.9, Anion Gap 12, BUN 8, Creatinine 0.89, Estim Creat Clear Calc 90.22, Est GFR (MDRD) Non-Af 109, BUN/Creatinine Ratio 8.7 L, Glucose 105 H, Calcium 8.7, Total Bilirubin 0.68, AST 32, ALT 44, Alkaline Phosphatase 52, Total Protein 5.7 L, Albumin 3.9, Globulin 1.8 L, Albumin/Globulin Ratio 2.1, Acetaminophen < 5.0 L Rhythm Strip Rhythm Strip: Sinus Rhythm Rate: 95 Ectopy: None Physical Exam Narrative GENERAL: In no apparent respiratory distress HEENT: Atraumatic; normocephalic EYES; Anicteric, Normal Conjunctiva NECK; supple, normal thyroid, RESPIRATORY: Diminished to auscultation CARDIOVASCULAR: Regular S1 S2, GI: soft, normoactive bowel sounds, : No Renal angle tenderness; EXTREMITIES: No edema, no clubbing, MUSCULOSKELETAL: no muscle wasting NEURO: Awake; no lateralizing signs. SKIN: No Rash PSYCH; Flat affect Assessment & Plan Assessment/Plan (1) Suicide attempt by acetaminophen overdose: (2) Acetaminophen toxicity: PLAN: Plan Patient is a 44-year-old male who presented to [facility] ED on 05/14/2025 with intentional Tylenol overdose. 1. Intentional Tylenol overdose ? Patient admitted to the intensive care unit currently being managed with a N-acetylcysteine protocol. Consult has been placed to the crisis team 2. Severe depression with suicidal attempt ? Management as discussed above 3. Tobacco dependence ? Counseled on cessation, offered nicotine patch for tobacco cravings 4. DVT prophylaxis ? Low risk encourage early ambulation Time spent in the patient's overall evaluation,decision-making process, review of diagnostic data, adjustment of management, discussion with other providers, nursing nursing and ancillary staff involved in patient's care documentation, 36 Minutes Charges/Coding Visit Charges Inpatient E&M: 80050 Subs Hosp L2
[2025-05-15] MEDS: Ensure Plus High Protein 120 ML LIQUID PO (08:59)
--- NOTE | 2025-05-15 10:25 | CASEMGMT ---
Social Work ERNESTINE spoke with physician. Pt will be medically cleared for psychiatric placement once the medication protocol is complete, which is at 1037 today. ERNESTINE spoke with MALENA Polk. Felicitas will work on placement and follow up with pt. Nursing updated. JOSE G Knowles
--- NOTE | 2025-05-15 10:44 | CASEMGMT ---
Social Work SW received hand off via email regarding patient from ED RONALD Dunn, that patient had been assessed and was waiting for medical clearance prior to placement. This SW was notified this morning from acute floor SW that patient was medically cleared. SW contacted [facility] to see if male beds were available, no beds at this time. SW contacted [facility], beds are available at this time. Referral was sent. Plan: Inpatient psychiatric hospitalization pending acceptance. RONALD Hernandez, OPEN WINDER
--- NOTE | 2025-05-15 12:04 | CM.ED ---
Social Work Patient was accepted at [facility], accepting physician is Dr. Parisi, will be going to 100 [address]. Nurse to nurse phone number is [phone]. Felicitas Kohli MSW, ACCOUNT DEVELOPMENT REPRESENTATIVE
--- NOTE | 2025-05-15 13:11 | CM.ED ---
Social Work SW met with patient to inform of placement. Patient accepting of same. SDOH completed. Patient states that he will be losing his apartment as he does not have a job and cannot pay rent. Patient states he has no friends or family that are able to help him. Patient accepting of resources for food pantries, [employer] card, metro housing list, community action housing navigator, senior living information and transportation services. No further needs identified at this time. Felicitas Kohli, INDUSTRIAL PSYCHOLOGY PROFESSOR, SECURITY SYSTEM ANALYST
--- NOTE | 2025-05-15 14:27 | CHAPLAIN ---
Type of Pastoral Visit _x__ Initial Visit ___ Follow-up Visit ___ On-call Visit ___ General Patient Visit ___ Spiritual Assessment ___ Family Conference ___ Bereavement ___ Rapid Response ___ Code Blue ___ Other (describe below) Pastoral Care Referral From ___ Patient ___ Family _x__ Nurse ___ Physician ___ Public Health Aide ___ Political Anthropologist ___ Other (describe below) Sacrament/Intervention ___ Active listening ___ Anointing ___ Christianity ___ Bereavement ___ Communion ___ Karla exploration ___ ___ Life review ___ Prayer ___ Reconciliation ___ Sacrament of Sick ___ Supportive presence ___ Wedding _x__ Other (describe below) Pastoral Comments patient refused any support or presence and was clear about his unwillingness to have someone to talk with; pt is to be transferred to a crisis facility later this afternoon
--- NOTE | 2025-05-15 14:29 | DS.PCM_ITS ---
Providers Date of Admission: 05/14/25 Date of Discharge: 05/15/25 Primary Care Physician: Dr. Salvador Denise MD Reason For Visit: INTENTIONAL TYLENOL OVERDOSE Diagnosis Discharge Diagnosis (1) Suicide attempt by acetaminophen overdose: Status: Acute Code(s): T39.1X2A - Poisoning by 4-Aminophenol derivatives, intentional self-harm, initial encounter (2) Acetaminophen toxicity: Status: Acute Code(s): T39.1X1A - Poisoning by 4-Aminophenol derivatives, accidental (unintentional), initial encounter Plan Patient is a 44-year-old male who presented to [facility] ED on 05/14/2025 with intentional Tylenol overdose. 1. Intentional Tylenol overdose ? Patient admitted to the intensive care unit currently being managed with a N- acetylcysteine protocol. Consult has been placed to the crisis team ? Patient was was assessed medically stable to be assessed by the crisis team after completion of his N-acetylcysteine protocol. Decision was made to transfer the patient to an inpatient psych facility 2. Severe depression with suicidal attempt ? Management as discussed above 3. Tobacco dependence ? Counseled on cessation, offered nicotine patch for tobacco cravings 4. DVT prophylaxis ? Low risk encourage early ambulation Time spent in the patient's overall evaluation,decision-making process, review of diagnostic data, adjustment of management, discussion with other providers, nursing nursing and ancillary staff involved in patient's care documentation, 36 Minutes Medications at Discharge Home Medications NK 05/14/25 Physical Exam Narrative GENERAL: In no apparent respiratory distress HEENT: Atraumatic; normocephalic EYES; Anicteric, Normal Conjunctiva NECK; supple, normal thyroid, RESPIRATORY: Diminished to auscultation CARDIOVASCULAR: Regular S1 S2, GI: soft, normoactive bowel sounds, : No Renal angle tenderness; EXTREMITIES: No edema, no clubbing, MUSCULOSKELETAL: no muscle wasting NEURO: Awake; no lateralizing signs. SKIN: No Rash PSYCH; Flat affect Medical Records Data Homelessness:: Unspecified Weight / BMI Weight Weight: 60.1 kg Body Mass Index (BMI) 18.9 ABG / Lab / Microbiology Data 05/15/25 03:26 05/15/25 03:26 Laboratory: Laboratory Results - last 24 hr 05/14/25 12:20: Total Bilirubin 0.39, Direct Bilirubin 0.18, AST 32, ALT 36, Alkaline Phosphatase 67, Total Protein 6.8, Albumin 4.6, Globulin 2.3 05/14/25 17:15: Urine Opiates Screen NEGATIVE, U Buprenorphine Qual NEGATIVE, Ur Oxycodone Screen NEGATIVE, Urine Methadone Screen NEGATIVE, Urine Fentanyl Screen NEGATIVE, Ur Barbiturates Screen NEGATIVE, Ur Phencyclidine Scrn NEGATIVE, Ur Amphetamines Screen NEGATIVE, U Benzodiazepines Scrn NEGATIVE, Urine Cocaine Screen NEGATIVE, U Cannabinoids Screen NEGATIVE 05/15/25 03:26: WBC 9.2, RBC 4.62, Hgb 14.2, Hct 41.6, MCV 90.0, MCH 30.7, MCHC 34.1, RDW Std Deviation 42.9, RDW Coeff of Dominique 13.0, Plt Count 185, MPV 10.6, PT 15.8 H, INR 1.2, Sodium 140, Potassium 3.6, Chloride 105, Carbon Dioxide 22.9, Anion Gap 12, BUN 8, Creatinine 0.89, Estim Creat Clear Calc 90.22, Est GFR (MDRD) Non-Af 109, BUN/Creatinine Ratio 8.7 L, Glucose 105 H, Calcium 8.7, Total Bilirubin 0.68, AST 32, ALT 44, Alkaline Phosphatase 52, Total Protein 5.7 L, Albumin 3.9, Globulin 1.8 L, Albumin/Globulin Ratio 2.1, Acetaminophen < 5.0 L D/C Instructions DC O2, CPAP, BIPAP Needs Home O2 Discharge instructions: No Meaningful Use Info Meaningful Use Meaningful Use Diagnoses (Choose all that apply): None applicable Discharge Plan Admission Admit Date/Time: 05/14/25 14:09 Attending Provider: Ronald Martinez Primary Care Provider: Salvador Denise Consulting Providers: Pako Martinez Discharge Orders/Prescriptions Prescriptions: No Action NK Referrals / Follow Up: Salvador Denise MD [Primary Care Provider] - Disposition Disposition (needs filled in before D/C Order can be placed): Psychiatric Hospital or Unit Charges/Coding Visit Charges Inpatient E&M: 84712 Disch Hosp >30min
== END 2025-05-15 14:48 | DRG 817 ==
LOC: ED 14:04 → ICU 14:22
PROVIDERS: Admitting Provider Hospitalist; Emergency Provider Emergency Medicine; PCP Family Medicine; Visit Provider Internal Medicine
DX: T39.1X2A Poisoning by 4-Aminophenol derivatives, intentional self-harm, initial encounter (principal); Z59.00 Homelessness unspecified; F32.2 Major depressive disorder, single episode, severe without psychotic features; F17.210 Nicotine dependence, cigarettes, uncomplicated
CPT/HCPCS: 80048; 80053; 80076; 80143; 80179; 80307; 82077; 85025; 85027; 85610; 93005; 99285; A4216; J2405